=== PATIENT | female | born 1950 | race Caucasian/White ===

== ENCOUNTER → 2016-06-29 | Outpatient (REF) | payer BC | LOC: M SFHCPLAZ 15:19 | PROVIDERS: ATTEND Dermatology | DX: L57.0 Actinic keratosis (principal) ==

== ENCOUNTER → 2016-10-05 | Outpatient (CLI) | payer BC ==
--- NOTE | 2016-10-06 08:50 | DEXA ---
AP SPINE L1 - L4 1.222 0.2 1.5 LT FEMUR TOTAL 1.152 1.1 2.2 RT FEMUR TOTAL 1.186 1.4 2.5 TOTAL BODY TOTAL OTHER DUAL FEMUR FRAX* ASSESSMENT Risk factors: None. 10 year probability of fracture Major osteoporotic fracture 5.9 % Hip fracture 0.1 % COMMENTS: Normal bone densitometry of the spine and hips. The decreased density of the spine does represent a significant change. The decreased density of the left hip does represent a significant change. The decreased density of the right hip does represent a significant change. The density of the spine has decreased 2.6% since the initial exam on 2002. The spine density has decreased 4.8% since the most recent exam on 07/07/2011. The density of the left hip has decreased 6.9% since the initial exam on 2002. The density of the left hip has decreased 9.1% since the most recent exam on 07/2011. The density of the right hip has decreased 1.6% since the initial exam on 2002. The density of the right hip has decreased 6.7% since the most recent exam on . FOLLOW-UP: Recommendation for the next bone density exam: 5 years. MYNOR
== END ==
LOC: M WHC 10:04
PROVIDERS: ATTEND Internal Medicine Medical Oncology
DX: C50.919 Malignant neoplasm of unspecified site of unspecified female breast (principal); M85.9 Disorder of bone density and structure, unspecified

== ENCOUNTER → 2016-11-10 | Outpatient (REF) | payer BC | LOC: M LAB REF 16:20 | PROVIDERS: ATTEND Nurse Practitioner Women's Health | DX: N39.0 Urinary tract infection, site not specified (principal) ==

== ENCOUNTER → 2017-01-17 | Outpatient (CLI) | payer BC ==
--- NOTE | 2017-01-17 14:23 | REP ---
Pelvic ultrasound with transabdominal and endovaginal imaging: Comparison 11/12/2014. The bladder is incompletely distended. The uterus is anteverted and normal size measuring 6.7 x 2.3 x 3.9 cm. The uterus has a subseptate configuration. The endometrium is not thickened measuring 1.9 mm and the right cornu and 1.4 mm in the left cornu. The ovaries could not be visualized. No adnexal masses are identified. Impression: There is no endometrial thickening. The ovaries could not be visualized. Otherwise, essentially negative pelvic ultrasound. Sign taking Signed by Colin Pina MD 01/17/2017 02:14 P
== END ==
LOC: M RAD 12:33
PROVIDERS: ATTEND Nurse Practitioner Women's Health
DX: N95.0 Postmenopausal bleeding (principal)

== ENCOUNTER → 2017-01-27 | Outpatient (REF) | payer BC | LOC: M LAB REF 15:22 | PROVIDERS: ATTEND Obstetrics & Gynecology | DX: R39.89 Other symptoms and signs involving the genitourinary system (principal) ==

== ENCOUNTER → 2017-03-23 | Outpatient (REF) | payer BC | LOC: M LAB REF 17:47 | PROVIDERS: ATTEND Internal Medicine | DX: Z11.59 Encounter for screening for other viral diseases (principal) ==

== ENCOUNTER 2017-11-29 09:50 | Day surgery (SDC) | payer BC ==
[~2017-11-29 09:50] MED LIST: ACETAMINOPHEN 325 MG TAB PO; PHENYLEPHRINE HCL 10 % OPHTH. SOL 5ML OS; TROPICAMIDE 1% OPHTH SOLN 2ML OS
[2017-11-29] MEDS ORDERED: TRIMETHOBENZAMIDE 300 MG CAP PO (10:30)
[2017-11-29] MEDS: LIDOCAINE 3.5 % 1ML OPHTH TOPICAL GEL OU (10:32)
[2017-11-29] MEDS: CYCLOPENTOLATE 2% OPHTH SOLN 2ML BTL OS (10:32)
[2017-11-29] MEDS: OFLOXACIN 0.3 % (OCUFLOX) OPTH SOL 5ML OS (10:32)
[2017-11-29] MEDS: PHENYLEPHRINE 2.5% OPHTH SOL 2ML OS (10:32)
[2017-11-29] MEDS: POVIDONE-IODINE 5% OPHTH PREP SOL 30ML As Ordered (11:57)
[2017-11-29] MEDS: LIDOCAINE 1% SDV 5 ML VIAL As Ordered (12:00)
[2017-11-29] MEDS: BSS with VANC/TOB/EPI for EYE CASES IR (12:01)
[2017-11-29] MEDS ORDERED: MIDAZOLAM INJ 2 MG/2 ML VIAL (J2250) As Ordered (12:03)
[2017-11-29] MEDS ORDERED: fentaNYL 100 MCG/2 ML INJECTION (J3010) As Ordered (12:03)
[2017-11-29] MEDS: HEALON DUET (HEALON 10MG/ML 0.55ML & HEALON ENDOCOAT 30MG/ML 0.85ML) As Ordered (12:04)
[2017-11-29] MEDS: TRIAMCINOLONE PRES FR 40 MG/ML 1ML(TRIESENCE)(OR EYE ONLY)(J3300 PER 1MG) As Ordered (12:04)
[2017-11-29] MEDS: MOXIFLOXACIN IN BSS 0.25MG/0.25ML INTRACAMERAL INJ (OR EYE ONLY)(J2280) As Ordered (12:04)
[2017-11-29] MEDS ORDERED: ONDANSETRON 4MG/2ML VIAL (J2405) As Ordered (12:05)
[2017-11-29] MEDS: AcetaZOLAMIDE 500 MG ER CAP PO (12:41)
== END 2017-11-29 13:05 | disposition home or self-care (01) ==
LOC: M SDC 09:50
DX: H25.9 Unspecified age-related cataract (principal); Z79.899 Other long term (current) drug therapy; Z92.3 Personal history of irradiation; Z85.3 Personal history of malignant neoplasm of breast; Z92.21 Personal history of antineoplastic chemotherapy
CPT/HCPCS: 66984

== ENCOUNTER 2019-07-25 06:08 | Day surgery (SDC) | payer BC ==
[2019-07-25] VITALS (7 sets, daily range): BP systolic 126–161; BP diastolic 59–78
[~2019-07-25] VITALS: Ht 165.1 cm; Wt 69.8 kg
[~2019-07-25 06:08] MED LIST changes: -ACETAMINOPHEN 325 MG TAB PO; +D32000TA2 PO; +LETR2.5T2 PO; +LR 1,000 ML IV ONE; +MULTCAP PO; +MULTCAP11 PO; +MYRB25TA PO; +OSEL75CA PO; +OSPH1TAB PO; +PHENAZOPYRIDINE 100 MG TAB PO ONE; -PHENYLEPHRINE HCL 10 % OPHTH. SOL 5ML OS; -TROPICAMIDE 1% OPHTH SOLN 2ML OS; +VITA100067 PO; +VITA500T PO; +ceFAZolin SOD 2 GM in IV 1 EA IV ONE
[2019-07-25] MEDS ORDERED: propofoL 200 MG/20 ML VIAL As Ordered ONE (06:14)
[2019-07-25] MEDS ORDERED: ONDANSETRON 4MG/2ML VIAL (J2405) As Ordered ONE (06:14)
[2019-07-25] MEDS ORDERED: dexameTHASONE 4 MG/ML 1ML VIAL (J1100) As Ordered ONE (06:14)
[2019-07-25] MEDS ORDERED: KETOROLAC 60 MG/2 ML VIAL (J1885) As Ordered ONE (06:14)
[2019-07-25] MEDS ORDERED: LIDOCAINE 2% INJ 100 MG/5 ML SDV (FOR ANES.) As Ordered ONE (06:14)
[2019-07-25] MEDS ORDERED: ROCURONIUM BROMIDE 50 MG/5 ML VIAL As Ordered ONE ×2 (06:14→08:53)
[2019-07-25 06:42] LABS: HEMOGLOBIN 12.8 g/dl (12.0-15.5); MEAN CORPUSCULAR HEMOGLOBIN 32.2 pg (27.0-33.0); MEAN CORPUSCULAR VOLUME 100.5 fl (80.0-96.0); PLATELET COUNT, AUTOMATED 205 10^3/uL (150-450); RED BLOOD COUNT 3.98 10^6/uL (4.00-5.40)
[2019-07-25] MEDS ORDERED: VASOPRESSIN INJ 20 UNITS/ML VIAL As Ordered ONE (07:18)
[2019-07-25] MEDS ORDERED: ePHEDrine SULFATE 25 MG/5 ML(5MG/ML) SYRINGE As Ordered ONE (07:53)
[2019-07-25] MEDS ORDERED: fentaNYL 250 MCG/5 ML INJECTION (J3010) As Ordered ONE (08:32)
[2019-07-25] MEDS ORDERED: MIDAZOLAM INJ 2 MG/2 ML VIAL (J2250) As Ordered ONE (08:32)
[2019-07-25] MEDS ORDERED: HYDROmorphone HCL 2 MG/ML 1ML VIAL (J1170) As Ordered ONE (09:28)
[2019-07-25] MEDS ORDERED: SUGAMMADEX SODIUM 500 MG/5 ML VIAL (BRIDION) As Ordered ONE (10:20)
[2019-07-25] MEDS ORDERED: MORPHINE 1MG/ML IN 0.9% NACL 100ML IV BAG As Ordered ONE (10:57)
[2019-07-25] MEDS ORDERED: fentaNYL 100 MCG/2 ML INJECTION (J3010) IV PRN (11:30)
[2019-07-25] MEDS ORDERED: MORPHINE 2 MG/ML 1ML VIAL (J2270) IV PRN (11:30)
[2019-07-25] MEDS: LR 1,000 ML IV SCH ×2 (11:30→18:48)
[2019-07-25] MEDS ORDERED: LR 1,000 ML IV SCH (11:30)
[2019-07-25] MEDS ORDERED: ONDANSETRON 4MG/2ML VIAL (J2405) IV PRN (11:30)
[2019-07-25] MEDS ORDERED: IBUPROFEN 600 MG TAB PO PRN (11:45)
[2019-07-25] MEDS ORDERED: EPIDURAL/PCA KEYS XX PRN (12:00)
[2019-07-25] MEDS ORDERED: diphenhydrAMINE INJ 50MG/ML VIAL (J1200) IV PRN (12:00)
[2019-07-25] MEDS ORDERED: MORPHINE 1MG/ML IN 0.9% NACL 100ML IV BAG IV PRN (12:00)
[2019-07-25] MEDS ORDERED: NALOXONE INJ 0.4 MG/1 ML VIAL (J2310) IV PRN (12:00)
[2019-07-25] MEDS ORDERED: NALBUPHINE HCL 10 MG/ML AMP (J2300) IV PRN (12:00)
[2019-07-25] MEDS ORDERED: PROMETHAZINE INJ 25 MG/ML VIAL (J2550) IV PRN (19:45)
--- NOTE | 2019-07-25 21:47 | RO ---
DATE OF PROCEDURE: 07/25/2019 PREOPERATIVE DIAGNOSIS: Symptomatic pelvic prolapse, failed pessary. POSTOPERATIVE DIAGNOSIS: Symptomatic pelvic prolapse, failed pessary. PROCEDURE: Total vaginal hysterectomy with bilateral salpingo-oophorectomy, sacrospinous suspension using Anchorsure, anterior and posterior repair and cystourethroscopy. SURGEON: Dr. Marina Ma ROTARY CUTTER OPERATOR: None. ANESTHESIA: General endotracheal anesthesia. DESCRIPTION OF PROCEDURE: Kinsey was brought to the operating room where sufficient general endotracheal anesthesia was induced; of course, the pessary was removed, and she was prepped, draped and positioned in the usual sterile fashion. The cervix was grasped with a single-tooth tenaculum anteriorly and posteriorly, the bladder was emptied. And with retractors in place, a circumferential incision was made around the base of the cervix, and it was carefully dissected away from the cardinal ligaments, which were isolated, clamped, transected, and ligated using De Vasquez clamps, which were used throughout this portion of the case and #0 Vicryl suture, which was similarly used throughout this portion of the case. The uterosacrals were then clamped, transected and ligated and posterior resection of the peritoneum entered, and the dissection continued anteriorly to free the uterus. There was considerable redundant tissue consistent with the patient's longstanding prolapse, but no surprises. With the anterior reflection of the peritoneum dissected and a bladder flap created and the bladder retracted away, the uterine vasculature was then carefully clamped, transected, and ligated along the lateral aspect of the uterus until they could be delivered. We then had Milka clamps and used those to bring down the tubes. Evidence of a previous tubal ligation was present, and the ovaries were small and atrophic, but they were brought down. There was a small cyst on the left side; this too was brought down and De Vasquez clamps used to clamp the pedicles and #0 Vicryl used to ligate them. Good hemostasis was confirmed bilaterally, and we were able to get both ovaries and tubes. I then carefully evaluated the pedicles and closed the peritoneum in a running locked stitch, and then dissected the anterior paravesical tissues away from the vagina apically and did an anterior repair with a modified Carrillo's. And then resected some of the redundant tissue anteriorly before we even brought it up because using Allis clamps, we were able to lift the tissue to the sacrospinous ligament and see that there was a redundancy there. We then turned our attention posteriorly. Dissected posteriorly to the sacrospinous ligament and freed the tissues there. There was also a large defect toward the introitus and a separation of the rectovaginal septum from the perineal body. But at this point, we were working apically. We dissected to the sacrospinous ligament, and then we used Anchorsure anchors. We placed two Anchorsure anchors. Each of those anchors had two #2-0 Maxon sutures so that we had four sutures to work with, and we did a four-point apical support of the vagina coming through and through the tissues, which had already been dissected away from the rectovaginal septum and the underlying paravesical tissues, as already noted. We then used the Sebastian needle for those [id number] stitches to the vaginal epithelium, and then having four of those in place, elevated them to the sacrospinous ligament, single throws each. Put those under some tension to hold those throws in place and then did the cystourethroscopy. We could see puckering anteriorly where the cystocele had already been supported, and there was no evidence of injury to the bladder or suture in place. There were normal jets of urine from both ureters and photo was taken in an effort to document this, but with the Pyridium the photos are a little bit dark because the ureters were jetting right into the camera. But there was no evidence of bladder or ureter injury. There was good evidence of support. The cystourethroscopy was completed after we had emptied the bladder again. Then, we finished the rest of the throws on the Maxon sutures and, of course, the vaginal cuff itself was closed with #0 Vicryl. Attention then turned anteriorly. There was still a little midline defect, so made an anterior incision with the scalpel, deep stitches of #2-0 Vicryl and then superficial stitches in the vaginal epithelium of #2-0 Vicryl to close the defect. And then we turned our attention posteriorly. Again, there was a fairly broad and then a right-sided defect in the rectovaginal septum, as well as a separation from the perineal body. So, we removed an inverted triangle of tissue from the perineum and then dissected the vaginal epithelium away from the underlying rectovaginal tissues, and then dissected even further out towards the right side to try to reconnect those tissues and correct that sort of right paravaginal defect, but it was posterior not anterior. And we did deep tissue support vaginally with #2-0 Vicryl, removed the redundant vaginal epithelium, and closed the vaginal wound with #2-0 Vicryl as well at the perineal body. We resutured the rectovaginal septum to the perineal body deeply and then also re-supported the perineal body itself with #0 Vicryl in that area. Then, we used #2-0 Vicryl to close the rest of the defect, having resupported the tissues, and then the procedure was ended. Ayon was placed postop. There was no need for packing. Estimated blood loss for the procedure was 100 mL. Fluid replacement was crystalloid. Complications: None. Condition and Disposition: Kinsey tolerated the procedure well and was recovering in the recovery room in good condition.
[2019-07-26] VITALS: BP 136/70
[2019-07-26] MEDS: LR 1,000 ML IV SCH (03:01)
[2019-07-26 04:00] VITALS: BP 123/60
[2019-07-26] MEDS ORDERED: NORCO, ANEXSIA 5/325MG TABLET (HYDROcodone/ACETAMINOPHEN) PO PRN (06:00)
[2019-07-26 08:00] VITALS: BP 130/70
[2019-07-26 08:26] LABS: MEAN CORPUSCULAR HEMOGLOBIN 32.7 pg (27.0-33.0); MEAN CORPUSCULAR HGB CONC 32.7 g/dl (32.0-36.5); PLATELET COUNT, AUTOMATED 168 10^3/uL (150-450); WHITE BLOOD COUNT 9.7 10^3/uL (4.0-10.0)
[2019-07-26 08:28] LABS: HEMOGLOBIN 8.5 g/dl (12.0-15.5)
== END 2019-07-26 09:15 | disposition home or self-care (01) ==
LOC: M SDC 06:08 → M PED 13:20 → M SDC 07-26 09:15
PROVIDERS: ATTEND Obstetrics & Gynecology
DX: N81.9 Female genital prolapse, unspecified (principal); N72 Inflammatory disease of cervix uteri; Z85.3 Personal history of malignant neoplasm of breast; Z92.21 Personal history of antineoplastic chemotherapy; Z92.3 Personal history of irradiation; Z79.899 Other long term (current) drug therapy
CPT/HCPCS: 36415; 57260; 57282; 58262; 85027; 86850; 86900; 86901; 88305; 96361; 96374; C1713; J0690; J1100; J1170; J1885; J2250; J2405; J3010

== ENCOUNTER → 2019-08-09 | Outpatient (REF) | payer BC ==
[~2019-08-09] MED LIST changes: -LR 1,000 ML IV ONE; -PHENAZOPYRIDINE 100 MG TAB PO ONE; -ceFAZolin SOD 2 GM in IV 1 EA IV ONE
[2019-08-09 18:47] LABS: APPEARANCE, URINE TURBID (CLEAR); BACTERIA, URINE AUTO 1+ (NEGATIVE); BILIRUBIN, URINE AUTO NEGATIVE (NEGATIVE); BLOOD, URINE BLOOD 3+ (NEGATIVE); COLOR, URINE YELLOW (YELLOW); GLUCOSE, URINE (UA) AUTO NEGATIVE (NEGATIVE); KETONE, URINE AUTO NEGATIVE (NEGATIVE); LEUKOCYTE ESTERASE, URINE AUTO 2+ (NEGATIVE); MUCUS, URINE SMALL (NEGATIVE); NITRITE, URINE AUTO NEGATIVE (NEGATIVE); PROTEIN, URINE AUTO NEGATIVE (NEGATIVE); RBC, URINE AUTO 22 /HPF (0-3); SPECIFIC GRAVITY URINE AUTO 1.016 (1.002-1.035); SQUAMOUS EPITHELIAL CELL UR AU 0 /HPF (0-6); UROBILINOGEN, URINE AUTO 0.2 mg/dL (0.0-2.0); WBC, URINE AUTO 13 /HPF (0-3)
== END ==
LOC: M LAB REF 17:15
PROVIDERS: ATTEND Obstetrics & Gynecology
DX: N39.0 Urinary tract infection, site not specified (principal)

== ENCOUNTER → 2020-08-19 | Outpatient (REF) | payer BC ==
[~2020-08-19] MED LIST changes: +VITA-243 PO; -VITA500T PO
== END ==
LOC: M LAB REF 17:13
PROVIDERS: ATTEND Physician Assistant
DX: C44.729 Squamous cell carcinoma of skin of left lower limb, including hip (principal); D48.5 Neoplasm of uncertain behavior of skin

== ENCOUNTER → 2020-09-22 | Outpatient (REF) | payer BC, MEDICARE | LOC: M LAB REF 13:53 | PROVIDERS: ATTEND Dermatology | DX: T14.90XD Injury, unspecified, subsequent encounter (principal) ==

== ENCOUNTER → 2020-10-20 | Outpatient (REF) | payer BC, MEDICARE | LOC: M LAB REF 13:45 | PROVIDERS: ATTEND Dermatology | DX: T14.90XD Injury, unspecified, subsequent encounter (principal) ==

== ENCOUNTER → 2023-02-07 | Outpatient (CLI) | payer MEDICARE | LOC: M WHC 09:23 | PROVIDERS: ATTEND Internal Medicine | DX: Z13.820 Encounter for screening for osteoporosis (principal); M85.88 Other specified disorders of bone density and structure, other site ==

== ENCOUNTER → 2023-02-13 | Outpatient (CLI) | payer MEDICARE ==
[~2023-02-13] MED LIST changes: +ISOVUE-300 61% 100ML VIAL As Ordered ONE; +LIDOCAINE 1% MDV 20ML VIAL As Ordered ONE; +PROHANCE 279.3MG/ML 5ML VIAL As Ordered ONE
== END ==
LOC: M RAD 06:44
PROVIDERS: ATTEND Physician Assistant
DX: M75.41 Impingement syndrome of right shoulder (principal)
CPT/HCPCS: 23350; 73223; 77002; A9576; Q9967

== ENCOUNTER 2023-11-06 09:01 | Day surgery (SDC) | payer MEDICARE ==
[~2023-11-06] VITALS: Ht 165.1 cm; Wt 65.9 kg
[~2023-11-06 09:01] MED LIST changes: +CELE1CAP99 PO; +D3 U5000 PO; -ISOVUE-300 61% 100ML VIAL As Ordered ONE; -LIDOCAINE 1% MDV 20ML VIAL As Ordered ONE; +NIAC250C16 PO; +NS 1,000 ML IV ONE; -PROHANCE 279.3MG/ML 5ML VIAL As Ordered ONE; +THERTAB52 PO; +VITA-176 PO
[2023-11-06] MEDS ORDERED: propofoL 200 MG/20 ML VIAL As Ordered ONE (09:31)
[2023-11-06 10:30] VITALS: BP 122/58; TEMP 96.4; O2SAT 99
== END 2023-11-06 10:40 | disposition home or self-care (01) ==
LOC: M OPP 09:01
PROVIDERS: ATTEND Internal Medicine Gastroenterology
DX: Z12.11 Encounter for screening for malignant neoplasm of colon (principal); K64.0 First degree hemorrhoids; Z79.1 Long term (current) use of non-steroidal anti-inflammatories (NSAID); Z79.810 Long term (current) use of selective estrogen receptor modulators (SERMs); Z79.818 Long term (current) use of other agents affecting estrogen receptors and estrogen levels

== ENCOUNTER → 2025-04-02 | Outpatient (CLI) | payer MEDICARE ==
[~2025-04-02] MED LIST changes: +CHOL25TA15 PO; -NS 1,000 ML IV ONE; -VITA-176 PO
== END ==
LOC: M WUC 12:32
PROVIDERS: ATTEND Internal Medicine
DX: R06.02 Shortness of breath (principal); R07.9 Chest pain, unspecified